=== PATIENT | female | born 1990 | race Caucasian/White ===

== ENCOUNTER 2020-08-04 09:01 | Day surgery (SDC) | payer MEDICARE, OTHER ==
[~2020-08-04] VITALS: Ht 160 cm; Wt 75.3 kg
--- NOTE | 2020-08-04 09:41 | NUR ---
RT COLLECTED COVID 19 SWAB WITH NO COMPLICATIONS. RT USED THE CEPHEID RAPID TEST THROUGH [facility] PER DR REQUEST AT THIS TIME.
[2020-08-04] MEDS ORDERED: ACETAMINOPHEN500 MG PO ×2 (09:57→09:58)
[2020-08-04] MEDS ORDERED: POLYETHYLENE GL17 GM PO (09:58)
[2020-08-04] MEDS ORDERED: BISACODYL10 MG PR (10:06)
[2020-08-04] MEDS ORDERED: DOCUSATE SODIU100 MG PO (10:07)
[2020-08-04] MEDS ORDERED: LEVOTHYROXINE25 MC1 PO (10:07)
[2020-08-04] MEDS ORDERED: MEDROXYPRO150 MG/1 M IM (10:08)
[2020-08-04] MEDS ORDERED: NABUMETONE500 MG PO (10:10)
[2020-08-04] MEDS ORDERED: MIDOL CAPLET1 EAC1 PO (10:10)
[2020-08-04] MEDS ORDERED: OLANZAPINE5 MG PO (10:12)
[2020-08-04] MEDS ORDERED: TRANSDERM-SCOP1 EACH TD (10:12)
[2020-08-04] MEDS ORDERED: FIBER THERAPY660 GM PO (10:12)
[2020-08-04] MEDS ORDERED: TRIAMCINOLONE A15 G1 TOP (10:13)
[2020-08-04] MEDS ORDERED: VITAMIN D250 MC1 PO (10:13)
--- NOTE | 2020-08-04 12:16 | NUR ---
08/04/20 Rachel6 Amara Marmolejo 1209- PT ARRIVES TO PACU NONAROUSABLE TO NOXIOUS STIMULI WITH AN OPA IN PLACE. RESP EVEN AND UNLABORED. OXYGEN SAT HIGH 90'S TO 100% ON 6L VIA MASK. JAW LIFT BEING COMPLETED TO MAINTAIN PATENT AIRWAY. 1214- PILLOW REMOVED AND PT'S HEAD REPOSITIONED TO MAINTAIN PATENT AIRWAY. JAW LIFT STOPPPED.
--- NOTE | 2020-08-04 13:12 | EKG ---
[facility] [address] [place], [place] [address] Signed Sinus rhythm with premature ventricular complexes or fusion complexes Low voltage QRS Borderline ECG No previous ECGs available Confirmed by HANNA MERAZ DO ([id number]) on 08/04/2020 1:12:12 PM Electronically Signed By: HANNA MERAZ DO 08/04/20 1312 PATIENT NAME: ARABELLA BAHENA Electrocardiogram DATE OF : 89 PHYSICIAN: HANNA MERAZ DO REPORT #: [id number] REPORT IS CONFIDENTIAL AND NOT TO BE RELEASED WITHOUT AUTHORIZATION
--- NOTE | 2020-08-04 14:07 | NUR ---
1245: PATIENT BACK IN DAY SURGERY ROOM FROM PACU. PATIENT DROWSY. BUT AWAKENS EASILY. APPEARS COMFORTABLE. PATIENT RELAXED, COOPERATES WITH VITAL SIGNS. NO BLOOD SEEN IN MOUTH AT THIS TIME. CAREGIVERS AT BEDSIDE. CALL LIGHT WITHIN REACH OF CAREGIVERS. 1255: CAREGIVERS PUT TICKET DISPENSER CHANGER LIGHT. PATIENT HAD EPISODE OF SMALL EMESIS AND CONTINUES TO DRY HEAVE. ORAL SUCTIONING OF MOUTH DONE MUCH PATIENT ALLOWS. 1305: CALL PLACED TO DR. AGUSTIN. ORDER FOR IV ZOFRAN OBTAINED. 1315: CAREGIVERS PUT TICKET DISPENSER CHANGER LIGHT AGAIN. PATIENT THROWING UP AGAIN. IV ZOFRAN GIVEN. SMALL AMOUNT OF EMESIS WITH DRY HEAVING. 1345: CAREGIVERS AGAIN PUT TICKET DISPENSER CHANGER LIGHT FOR PATIENT THROWING UP. SMALL AMOUNT OF BROWN EMESIS WITH DRY HEAVING. DR. AGUSTIN CALLED. NEW ORDER RECEIVED FOR IV PHENERGAN. 1350: HINA IVEY CRNA UPDATED ON PATIENT STATUS. ORDER RECEIVED TO HOLD PHENERGAN. GIVE INAPSINE INSTEAD. MAY GIVE PHENERGAN LATER IF INAPSINE INEFFECTIVE. 1353: IV INAPSINE GIVEN. CAREGIVERS AT BEDSIDE. 1400: CALL LIGHT PUT ON BY CAREGIVERS. PATIENT THROWING UP WITH DRY HEAVES AGAIN. SMALL AMOUNT OF EMESIS. ORAL SUCTIONING PROVIDED MUCH PATIENT ALLOWED.
--- NOTE | 2020-08-04 14:22 | NUR ---
CHECKED PATIENT. PATIENT SLEEPING. DID NOT DISTURB PATIENT. CAREGIVERS AT BEDSIDE. CALL LIGHT WITHIN REACH OF CAREGIVERS.
[2020-08-04] MEDS ORDERED: IBUPROFEN400 MG PO (14:39)
--- NOTE | 2020-08-04 15:01 | NUR ---
1455: PATIENT CONTINUES TO SLEEP. CAREGIVERS AT BEDSIDE. CALL LIGHT WITHIN REACH OF CAREGIVERS.
--- NOTE | 2020-08-04 16:02 | NUR ---
1520: CAREGIVER CONFUSED ON WHY PATIENT'S CHIPPED FRONT TOOTH WAS NOT FIXED DURING HER DENTAL PROCEDURE TODAY. STATES PATIENT'S SISTER EXPECTED IT TO BE FIXED. CALL PLACED TO DR. AGUSTIN FOR CLARIFICATION. CLARIFICATION THEN EXPLAINED TO CAREGIVER. 1600: PATIENT TOLERATED ORANGE JELLO. NOW BACK TO SLEEP. CAREGIVERS AT BEDSIDE. CALL LIGHT WITHIN REACH OF CAREGIVERS.
--- NOTE | 2020-08-04 16:43 | NUR ---
1620: DISCHARGE INSTRUCTIONS GIVEN TO CAREGIVERS. PATIENT UNCOOPERATIVE WITH VITAL SIGNS. ASSISTED CAREGIVERS TO GET PATIENT DRESSED. PATIENT AMBULATED FROM STRETCHER TO PERSONAL WHEELCHAIR. CAREGIVERS STATED GAIT WAS BACK TO BASELINE FOR PATIENT. PATIENT TAKEN TO BATHROOM VIA PERSONAL WHEELCHAIR BY CAREGIVERS.
--- NOTE | 2020-08-04 16:48 | NUR ---
1647: SL D/C'D WITH CATH TIP INTACT AND PRESSURE APPLIED TO SITE. PT WHEELED OFF OF UNIT IN OWN W/C BY CAREGIVERS. RESP EVEN AND UNLABORED. NO PHYSICAL S/S OF DISTRESS AT THIS TIME
== END 2020-08-04 16:47 | disposition home or self-care (01) ==
LOC: OPS 09:01 → DS 09:10 → OPS 11:45
PROVIDERS: ATTEND Dentist General Practice
PROC: 0CRWXJ1 Replacement of Upper Tooth, Multiple, with Synthetic Substitute, External Approach (ICD-10-PCS; 2020-08-04)
PROC: 0CRXXJ1 Replacement of Lower Tooth, Multiple, with Synthetic Substitute, External Approach (ICD-10-PCS; principal; 2020-08-04 11:45)
DX: K02.9 Dental caries, unspecified (principal); G80.9 Cerebral palsy, unspecified; F84.2 Rett's syndrome; F03.90 Unspecified dementia, unspecified severity, without behavioral disturbance, psychotic disturbance, mood disturbance, and anxiety; R13.11 Dysphagia, oral phase; Z20.822 Contact with and (suspected) exposure to COVID-19
CPT/HCPCS: 00170; 84703; 93005; 93010; C9803; J1100; J1790; J2001; J2250; J2405; J2704; J3010; J7121; U0003